=== PATIENT | male | born 1990 | race Caucasian/White ===

== ENCOUNTER 2018-03-09 03:05 | Inpatient (IN) | payer BC ==
[2018-03-09 04:38] LABS: ADD MAN DIFF? NO
[2018-03-09] MEDS: PANTOPRAZOLE 40 MG INJ IV (04:38)
[2018-03-09] MEDS: ONDANSETRON 4 MG INJ IV (04:38)
[2018-03-09] MEDS: morphine 4 MG/ML VIAL IV (04:38)
[2018-03-09] MEDS: SOD CHLORIDE 0.9% 1,000 ML IV ×4 (04:38→20:13)
[2018-03-09 04:49] LABS: BASOPHIL # 0.1 10^3/ul (0.0-0.1); BASOPHILS % 0.5 % (0.0-2.0); EOSINOPHILS % 0.1 % (0.0-7.0); HEMATOCRIT 43.4 % (42.0-52.0); HEMOGLOBIN 14.4 g/dl (14.0-18.0); LYMPHOCYTES # 2.4 10^3/ul (0.8-2.9); LYMPHOCYTES % 15.5 % (15.0-51.0); MEAN CORPUSCULAR HGB CONC 33.2 g/dl (32.0-37.0); MEAN CORPUSCULAR VOLUME 87.3 fl (82.0-101.0); MEAN PLATELET VOLUME 9.9 fl (7.4-10.4); MONOCYTE # 1.4 10^3/ul (0.3-0.9); MONOCYTES % 9.4 % (0.0-11.0); NEUTROPHIL # 11.3 10^3/ul (1.6-7.5); NEUTROPHILS % 73.6 % (39.0-77.0); PLATELET COUNT 309 10^3/UL (140-415); RED BLOOD COUNT 4.97 10^6/ul (4.70-6.10); RED CELL DISTRIBUTION WIDTH 13.2 % (11.5-14.5)
[2018-03-09 04:49] LABS: WHITE BLOOD COUNT 15.3 10^3/ul (4.8-10.8)
[2018-03-09 04:51] LABS: ADD UMIC YES; UR ASCORBIC ACID NEGATIVE (NEGATIVE); UR BACTERIA FEW /HPF (NONE SEEN); UR BILIRUBIN (Dip) NEGATIVE (NEGATIVE); UR BLOOD (Dip) 2+ mg/dL (NEGATIVE); UR CLARITY SLIGHTLY CLOUDY (CLEAR); UR COLOR YELLOW (YELLOW); UR GLUCOSE (Dip) NEGATIVE (NEGATIVE); UR KETONES (Dip) NEGATIVE (NEGATIVE); UR LEUKOCYTE ESTERASE (Dip) 1+ Leu/ul (NEGATIVE); UR MUCUS FEW /HPF (NONE SEEN); UR NITRITE (Dip) NEGATIVE (NEGATIVE); UR RBC 32 /HPF (0-5); UR SPECIFIC GRAVITY (Dip) 1.021 (1.003-1.030); UR SQUAMOUS EPITHELIAL CELL FEW /HPF (FEW); UR TOTAL PROTEIN (Dip) NEGATIVE (NEGATIVE); UR UROBILINOGEN (Dip) 1+ mg/dL (NEGATIVE); UR WBC 53 /HPF (0-5)
[2018-03-09 05:01] LABS: ALANINE AMINOTRANSFERASE 66 IU/L (13-69); ALBUMIN 4.9 g/dl (3.3-4.9); ALBUMIN/GLOBULIN RATIO 1.36; ALKALINE PHOSPHATASE 100 IU/L (42-121); ANION GAP 14 (5-13); ASPARTATE AMINO TRANSFERASE 40 IU/L (15-46); BILIRUBIN,INDIRECT 0.8 mg/dl (0-1.1); BILIRUBIN,TOTAL 0.8 mg/dl (0.2-1.3); BLOOD UREA NITROGEN 8 mg/dl (7-20); CALCIUM 9.4 mg/dl (8.4-10.2); CARBON DIOXIDE 28 mmol/L (21-31); CHLORIDE 100 mmol/L (97-110); CREATININE 0.66 mg/dl (0.61-1.24); Estimated GFR > 60 mL/min (>60); GLUCOSE 122 mg/dl (70-220); LIPASE 35 U/L (23-300); SODIUM 142 mmol/L (135-144); TOTAL PROTEIN 8.5 g/dl (6.1-8.1)
[2018-03-09] MEDS: PIPER-TAZO 3.375 GM IV (PMX) 100 ML IVPB ×4 (06:50→23:48)
[2018-03-09] MEDS ORDERED: ONDANSETRON 4 MG INJ IV (07:30)
[2018-03-09] MEDS ORDERED: BISACODYL (EC) 5 MG TAB PO (07:30)
[2018-03-09] MEDS ORDERED: NACL 0.9% 3 ML SYG IV (07:30)
[2018-03-09] MEDS ORDERED: DOCUSATE SODIUM 100 MG CAP PO (07:30)
[2018-03-09] MEDS: morphine 2 MG INJ IV ×4 (09:08→22:27)
[2018-03-09] MEDS: ACETAMINOPHEN 325 MG TAB PO (15:00)
[2018-03-10] MEDS: ACETAMINOPHEN 325 MG TAB PO ×2 (01:27→10:45)
[2018-03-10] MEDS: morphine 2 MG INJ IV ×2 (04:23→08:50)
[2018-03-10 05:26] LABS: ADD MAN DIFF? NO
[2018-03-10 05:34] LABS: WHITE BLOOD COUNT 14.5 10^3/ul (4.8-10.8)
[2018-03-10 05:34] LABS: BASOPHIL # 0.1 10^3/ul (0.0-0.1); BASOPHILS % 0.4 % (0.0-2.0); EOSINOPHILS % 0.1 % (0.0-7.0); HEMATOCRIT 39.4 % (42.0-52.0); HEMOGLOBIN 12.8 g/dl (14.0-18.0); LYMPHOCYTES # 2.4 10^3/ul (0.8-2.9); LYMPHOCYTES % 16.3 % (15.0-51.0); MEAN CORPUSCULAR HEMOGLOBIN 28.8 pg (29.0-33.0); MEAN CORPUSCULAR HGB CONC 32.5 g/dl (32.0-37.0); MEAN CORPUSCULAR VOLUME 88.5 fl (82.0-101.0); MEAN PLATELET VOLUME 9.9 fl (7.4-10.4); MONOCYTE # 1.4 10^3/ul (0.3-0.9); MONOCYTES % 9.4 % (0.0-11.0); NEUTROPHIL # 10.6 10^3/ul (1.6-7.5); PLATELET COUNT 274 10^3/UL (140-415); RED BLOOD COUNT 4.45 10^6/ul (4.70-6.10); RED CELL DISTRIBUTION WIDTH 13.2 % (11.5-14.5)
[2018-03-10] MEDS: PIPER-TAZO 3.375 GM IV (PMX) 100 ML IVPB ×3 (05:55→18:00)
[2018-03-10 06:09] LABS: ALANINE AMINOTRANSFERASE 46 IU/L (13-69); ALBUMIN 4.1 g/dl (3.3-4.9); ALBUMIN/GLOBULIN RATIO 1.36; ALKALINE PHOSPHATASE 83 IU/L (42-121); ANION GAP 12 (5-13); ASPARTATE AMINO TRANSFERASE 27 IU/L (15-46); BILIRUBIN,INDIRECT 1.6 mg/dl (0-1.1); BILIRUBIN,TOTAL 1.6 mg/dl (0.2-1.3); BLOOD UREA NITROGEN 8 mg/dl (7-20); CALCIUM 8.5 mg/dl (8.4-10.2); CARBON DIOXIDE 25 mmol/L (21-31); CHLORIDE 104 mmol/L (97-110); CHOLESTEROL 183 mg/dl (100-200); CREATININE 0.67 mg/dl (0.61-1.24); Estimated GFR > 60 mL/min (>60); GLUCOSE 97 mg/dl (70-220); HDL CHOLESTEROL 26 mg/dl (30-63); LDL CHOLESTEROL,CALCULATED 129 mg/dl; MAGNESIUM 1.8 mg/dl (1.7-2.5); POTASSIUM 4.2 mmol/L (3.5-5.1); SODIUM 141 mmol/L (135-144); TOTAL PROTEIN 7.1 g/dl (6.1-8.1); TRIGLYCERIDES 138 mg/dl (0-149)
[2018-03-10] MEDS ORDERED: BUPIVACAINE 0.5% (SDV) 30 ML INJ (07:00)
[2018-03-10 07:15] LABS: HEMOGLOBIN A1C 5.2 % (0-5.9)
[2018-03-10] MEDS: SOD CHLORIDE 0.9% 1,000 ML IV ×2 (07:25→13:56)
[2018-03-10] MEDS: SOD CHLORIDE 0.9% IV (10:57)
[2018-03-10] MEDS ORDERED: SOD CHLORIDE 0.9% 500 ML IV (11:00)
[2018-03-10 11:56] LABS: LACTIC ACID 1.2 mmol/L (0.5-2.0)
[2018-03-10] MEDS ORDERED: ONDANSETRON 4 MG INJ IV (17:30)
[2018-03-10] MEDS ORDERED: DIPHENHYDRAMINE 50 MG INJ IV (17:30)
[2018-03-10] MEDS ORDERED: HYDROmorphONE 1 MG/5 ML IV SYRINGE IV ×3 (17:30)
[2018-03-10] MEDS ORDERED: MEPERIDINE 25 MG INJ IV (17:30)
[2018-03-10] MEDS ORDERED: ROCURONIUM 50 MG INJ ×2 (17:36→18:17)
[2018-03-10] MEDS ORDERED: FENTAnyl 50 MCG/ML VIAL (17:36)
[2018-03-10] MEDS ORDERED: PROPOFOL 20 ML (17:36)
[2018-03-10] MEDS ORDERED: MIDAZOLAM 1 MG/ML 2 ML INJ (17:36)
[2018-03-10] MEDS ORDERED: ONDANSETRON 4 MG INJ (17:37)
[2018-03-10] MEDS ORDERED: METOCLOPRAMIDE 10 MG INJ (17:37)
[2018-03-10] MEDS ORDERED: ROPIVACAINE 0.5 % 30 ML VIAL (17:37)
[2018-03-10] MEDS: PIPERACIL/TAZO 3.375GM/100ML BAG IVPB (17:52)
[2018-03-10] MEDS: BUPIVACAINE 0.25%/EPI (MDV) 50 ML VIAL INJ (18:06)
[2018-03-10] MEDS ORDERED: NEOSTIGMINE 3 MG/3 ML SYRINGE (18:31)
[2018-03-10] MEDS ORDERED: HYDROmorphONE 0.5 MG/0.5 ML SYG IV (19:30)
[2018-03-10] MEDS: D5W-0.45 NACL + KCL 20 MEQ 1,000 ML IV (22:07)
[2018-03-11] MEDS: PIPER-TAZO 3.375 GM IV (PMX) 100 ML IVPB ×5 (01:06→23:53)
[2018-03-11] MEDS: ACETAMINOPHEN 325 MG TAB PO ×2 (03:29→15:45)
[2018-03-11] MEDS: D5W-0.45 NACL + KCL 20 MEQ 1,000 ML IV (05:06)
[2018-03-11 05:09] LABS: ADD MAN DIFF? NO
[2018-03-11 05:13] LABS: WHITE BLOOD COUNT 14.8 10^3/ul (4.8-10.8)
[2018-03-11 05:13] LABS: BASOPHILS % 0.2 % (0.0-2.0); HEMOGLOBIN 11.7 g/dl (14.0-18.0); LYMPHOCYTES % 13.2 % (15.0-51.0); MEAN CORPUSCULAR HEMOGLOBIN 29.1 pg (29.0-33.0); MEAN CORPUSCULAR HGB CONC 33.4 g/dl (32.0-37.0); MEAN CORPUSCULAR VOLUME 87.1 fl (82.0-101.0); MEAN PLATELET VOLUME 9.7 fl (7.4-10.4); MONOCYTE # 1.1 10^3/ul (0.3-0.9); MONOCYTES % 7.4 % (0.0-11.0); NEUTROPHIL # 11.6 10^3/ul (1.6-7.5); NEUTROPHILS % 78.4 % (39.0-77.0); PLATELET COUNT 273 10^3/UL (140-415); RED BLOOD COUNT 4.02 10^6/ul (4.70-6.10); RED CELL DISTRIBUTION WIDTH 12.8 % (11.5-14.5)
[2018-03-11 05:27] LABS: LACTIC ACID 0.9 mmol/L (0.5-2.0)
[2018-03-11 06:35] LABS: ALBUMIN/GLOBULIN RATIO 1.23; ANION GAP 11 (5-13); BILIRUBIN,TOTAL 1.2 mg/dl (0.2-1.3); Estimated GFR > 60 mL/min (>60)
[2018-03-11 06:45] LABS: ALANINE AMINOTRANSFERASE 38 IU/L (13-69); ALBUMIN 3.7 g/dl (3.3-4.9); ALKALINE PHOSPHATASE 90 IU/L (42-121); ASPARTATE AMINO TRANSFERASE 36 IU/L (15-46); BILIRUBIN,INDIRECT 1.2 mg/dl (0-1.1); BLOOD UREA NITROGEN 4 mg/dl (7-20); CALCIUM 8.5 mg/dl (8.4-10.2); CARBON DIOXIDE 23 mmol/L (21-31); CHLORIDE 105 mmol/L (97-110); CREATININE 0.64 mg/dl (0.61-1.24); GLUCOSE 120 mg/dl (70-220); POTASSIUM 3.4 mmol/L (3.5-5.1); SODIUM 139 mmol/L (135-144); TOTAL PROTEIN 6.7 g/dl (6.1-8.1)
[2018-03-11] MEDS: POTASSIUM CHLORIDE (SR) 20 MEQ TAB PO (09:54)
[2018-03-11 10:36] LABS: ADD MAN DIFF? NO
[2018-03-11 10:42] LABS: WHITE BLOOD COUNT 16.6 10^3/ul (4.8-10.8)
[2018-03-11 10:42] LABS: BASOPHILS % 0.2 % (0.0-2.0); EOSINOPHILS % 0.1 % (0.0-7.0); HEMATOCRIT 38.1 % (42.0-52.0); HEMOGLOBIN 12.4 g/dl (14.0-18.0); LYMPHOCYTES # 1.9 10^3/ul (0.8-2.9); LYMPHOCYTES % 11.5 % (15.0-51.0); MEAN CORPUSCULAR HEMOGLOBIN 28.5 pg (29.0-33.0); MEAN CORPUSCULAR HGB CONC 32.5 g/dl (32.0-37.0); MEAN CORPUSCULAR VOLUME 87.6 fl (82.0-101.0); MEAN PLATELET VOLUME 9.6 fl (7.4-10.4); MONOCYTE # 1.1 10^3/ul (0.3-0.9); MONOCYTES % 6.6 % (0.0-11.0); NEUTROPHIL # 13.4 10^3/ul (1.6-7.5); NEUTROPHILS % 80.6 % (39.0-77.0); PLATELET COUNT 306 10^3/UL (140-415); RED BLOOD COUNT 4.35 10^6/ul (4.70-6.10); RED CELL DISTRIBUTION WIDTH 13.2 % (11.5-14.5)
[2018-03-11 10:57] LABS: ANION GAP 11 (5-13); BLOOD UREA NITROGEN 3 mg/dl (7-20); CALCIUM 8.9 mg/dl (8.4-10.2); CARBON DIOXIDE 26 mmol/L (21-31); CHLORIDE 102 mmol/L (97-110); CREATININE 0.67 mg/dl (0.61-1.24); Estimated GFR > 60 mL/min (>60); GLUCOSE 132 mg/dl (70-220); POTASSIUM 3.5 mmol/L (3.5-5.1); SODIUM 139 mmol/L (135-144)
[2018-03-11] MEDS: SACCHAROMYCES BOULARDII 250 MG CAP PO (21:39)
[2018-03-12] MEDS: ACETAMINOPHEN 325 MG TAB PO ×3 (01:09→21:25)
[2018-03-12] MEDS: PIPER-TAZO 3.375 GM IV (PMX) 100 ML IVPB ×4 (06:22→23:27)
[2018-03-12] MEDS: SACCHAROMYCES BOULARDII 250 MG CAP PO ×2 (09:55→21:24)
[2018-03-12] MEDS: metroNIDAZOLE 500 MG TAB PO ×3 (10:25→21:24)
[2018-03-12 11:22] LABS: ADD MAN DIFF? NO
[2018-03-12 11:26] LABS: WHITE BLOOD COUNT 14.6 10^3/ul (4.8-10.8)
[2018-03-12 11:26] LABS: BASOPHIL # 0.1 10^3/ul (0.0-0.1); BASOPHILS % 0.5 % (0.0-2.0); EOSINOPHILS # 0.1 10^3/ul (0.0-0.5); EOSINOPHILS % 0.9 % (0.0-7.0); HEMATOCRIT 38.8 % (42.0-52.0); HEMOGLOBIN 12.7 g/dl (14.0-18.0); LYMPHOCYTES # 1.7 10^3/ul (0.8-2.9); LYMPHOCYTES % 11.3 % (15.0-51.0); MEAN CORPUSCULAR HEMOGLOBIN 28.6 pg (29.0-33.0); MEAN CORPUSCULAR HGB CONC 32.7 g/dl (32.0-37.0); MEAN CORPUSCULAR VOLUME 87.4 fl (82.0-101.0); MONOCYTE # 0.9 10^3/ul (0.3-0.9); MONOCYTES % 6.4 % (0.0-11.0); NEUTROPHIL # 11.6 10^3/ul (1.6-7.5); NEUTROPHILS % 79.3 % (39.0-77.0); PLATELET COUNT 352 10^3/UL (140-415); RED BLOOD COUNT 4.44 10^6/ul (4.70-6.10); RED CELL DISTRIBUTION WIDTH 13.1 % (11.5-14.5)
[2018-03-12 11:44] LABS: ANION GAP 13 (5-13); BLOOD UREA NITROGEN 4 mg/dl (7-20); CALCIUM 9.5 mg/dl (8.4-10.2); CARBON DIOXIDE 26 mmol/L (21-31); CHLORIDE 101 mmol/L (97-110); CREATININE 0.55 mg/dl (0.61-1.24); Estimated GFR > 60 mL/min (>60); GLUCOSE 125 mg/dl (70-220); POTASSIUM 3.8 mmol/L (3.5-5.1); SODIUM 140 mmol/L (135-144)
[2018-03-12] MEDS: ALPRAZOLAM 0.5 MG TAB PO (16:11)
[2018-03-13 05:06] LABS: ADD MAN DIFF? NO
[2018-03-13 05:07] LABS: BASOPHIL # 0.1 10^3/ul (0.0-0.1); BASOPHILS % 0.4 % (0.0-2.0); EOSINOPHILS # 0.4 10^3/ul (0.0-0.5); EOSINOPHILS % 2.6 % (0.0-7.0); HEMATOCRIT 36.1 % (42.0-52.0); HEMOGLOBIN 11.8 g/dl (14.0-18.0); LYMPHOCYTES # 1.5 10^3/ul (0.8-2.9); LYMPHOCYTES % 9.8 % (15.0-51.0); MEAN CORPUSCULAR HEMOGLOBIN 28.4 pg (29.0-33.0); MEAN CORPUSCULAR HGB CONC 32.7 g/dl (32.0-37.0); MEAN PLATELET VOLUME 9.8 fl (7.4-10.4); MONOCYTES % 6.6 % (0.0-11.0); NEUTROPHIL # 11.6 10^3/ul (1.6-7.5); NEUTROPHILS % 78.5 % (39.0-77.0); PLATELET COUNT 362 10^3/UL (140-415); RED BLOOD COUNT 4.15 10^6/ul (4.70-6.10); RED CELL DISTRIBUTION WIDTH 13.2 % (11.5-14.5)
[2018-03-13 05:07] LABS: WHITE BLOOD COUNT 14.8 10^3/ul (4.8-10.8)
[2018-03-13 05:34] LABS: ANION GAP 11 (5-13); BLOOD UREA NITROGEN 2 mg/dl (7-20); CALCIUM 9.2 mg/dl (8.4-10.2); CARBON DIOXIDE 27 mmol/L (21-31); CHLORIDE 103 mmol/L (97-110); CREATININE 0.58 mg/dl (0.61-1.24); Estimated GFR > 60 mL/min (>60); GLUCOSE 114 mg/dl (70-220); POTASSIUM 3.7 mmol/L (3.5-5.1); SODIUM 141 mmol/L (135-144)
[2018-03-13] MEDS: PIPER-TAZO 3.375 GM IV (PMX) 100 ML IVPB ×4 (06:07→23:54)
[2018-03-13] MEDS: metroNIDAZOLE 500 MG TAB PO ×2 (06:07→14:34)
[2018-03-13] MEDS: SACCHAROMYCES BOULARDII 250 MG CAP PO ×2 (08:43→20:34)
[2018-03-13] MEDS: GUAIFENESIN/DM 5ML CUP PO (12:51)
[2018-03-13] MEDS ORDERED: morphine LIQ (10 MG/5 ML) CUP PO (15:12)
[2018-03-13] MEDS: ACETAMINOPHEN 325 MG TAB PO (17:00)
[2018-03-14 05:54] LABS: ADD MAN DIFF? NO
[2018-03-14 05:57] LABS: BASOPHIL # 0.1 10^3/ul (0.0-0.1); BASOPHILS % 0.4 % (0.0-2.0); EOSINOPHILS # 0.4 10^3/ul (0.0-0.5); EOSINOPHILS % 2.8 % (0.0-7.0); HEMATOCRIT 34.5 % (42.0-52.0); HEMOGLOBIN 11.3 g/dl (14.0-18.0); LYMPHOCYTES # 1.7 10^3/ul (0.8-2.9); LYMPHOCYTES % 12.1 % (15.0-51.0); MEAN CORPUSCULAR HEMOGLOBIN 28.6 pg (29.0-33.0); MEAN CORPUSCULAR HGB CONC 32.8 g/dl (32.0-37.0); MEAN CORPUSCULAR VOLUME 87.3 fl (82.0-101.0); MEAN PLATELET VOLUME 9.9 fl (7.4-10.4); MONOCYTES % 7.4 % (0.0-11.0); NEUTROPHIL # 10.3 10^3/ul (1.6-7.5); NEUTROPHILS % 75.2 % (39.0-77.0); PLATELET COUNT 394 10^3/UL (140-415); RED BLOOD COUNT 3.95 10^6/ul (4.70-6.10); RED CELL DISTRIBUTION WIDTH 13.4 % (11.5-14.5)
[2018-03-14 05:57] LABS: WHITE BLOOD COUNT 13.7 10^3/ul (4.8-10.8)
[2018-03-14] MEDS: PIPER-TAZO 3.375 GM IV (PMX) 100 ML IVPB ×4 (06:01→23:36)
[2018-03-14 07:05] LABS: ANION GAP 12 (5-13); BLOOD UREA NITROGEN 3 mg/dl (7-20); CARBON DIOXIDE 26 mmol/L (21-31); CHLORIDE 103 mmol/L (97-110); CREATININE 0.57 mg/dl (0.61-1.24); Estimated GFR > 60 mL/min (>60); GLUCOSE 94 mg/dl (70-220); POTASSIUM 3.5 mmol/L (3.5-5.1); SODIUM 141 mmol/L (135-144)
[2018-03-14] MEDS: SACCHAROMYCES BOULARDII 250 MG CAP PO ×2 (08:59→20:35)
[2018-03-14] MEDS: IBUPROFEN 600 MG TAB PO (08:59)
[2018-03-14] MEDS: ALPRAZOLAM 0.5 MG TAB PO (08:59)
[2018-03-15] MEDS: PIPER-TAZO 3.375 GM IV (PMX) 100 ML IVPB ×2 (05:31→12:00)
[2018-03-15 07:20] LABS: ADD MAN DIFF? NO
[2018-03-15 07:28] LABS: WHITE BLOOD COUNT 15.7 10^3/ul (4.8-10.8)
[2018-03-15 07:28] LABS: BASOPHIL # 0.1 10^3/ul (0.0-0.1); BASOPHILS % 0.5 % (0.0-2.0); EOSINOPHILS # 0.6 10^3/ul (0.0-0.5); EOSINOPHILS % 3.6 % (0.0-7.0); HEMATOCRIT 35.8 % (42.0-52.0); HEMOGLOBIN 11.5 g/dl (14.0-18.0); LYMPHOCYTES # 1.7 10^3/ul (0.8-2.9); MEAN CORPUSCULAR HEMOGLOBIN 28.7 pg (29.0-33.0); MEAN CORPUSCULAR HGB CONC 32.1 g/dl (32.0-37.0); MEAN CORPUSCULAR VOLUME 89.3 fl (82.0-101.0); MEAN PLATELET VOLUME 9.8 fl (7.4-10.4); MONOCYTE # 1.1 10^3/ul (0.3-0.9); MONOCYTES % 6.9 % (0.0-11.0); NEUTROPHIL # 11.8 10^3/ul (1.6-7.5); NEUTROPHILS % 74.9 % (39.0-77.0); PLATELET COUNT 432 10^3/UL (140-415); RED BLOOD COUNT 4.01 10^6/ul (4.70-6.10); RED CELL DISTRIBUTION WIDTH 13.5 % (11.5-14.5)
[2018-03-15 07:41] LABS: ANION GAP 11 (5-13); BLOOD UREA NITROGEN 7 mg/dl (7-20); CALCIUM 8.7 mg/dl (8.4-10.2); CARBON DIOXIDE 26 mmol/L (21-31); CHLORIDE 104 mmol/L (97-110); CREATININE 0.64 mg/dl (0.61-1.24); Estimated GFR > 60 mL/min (>60); GLUCOSE 102 mg/dl (70-220); POTASSIUM 3.9 mmol/L (3.5-5.1); SODIUM 141 mmol/L (135-144)
[2018-03-15] MEDS: GUAIFENESIN/DM 5ML CUP PO (08:01)
[2018-03-15] MEDS: SACCHAROMYCES BOULARDII 250 MG CAP PO (08:52)
== END 2018-03-15 12:39 | disposition home or self-care (01) | DRG 853 ==
LOC: 6WM 03-10 11:31 → PP2 03-15 01:01 → FTE 03:05 → PP2 07:21
PROC: 0DNW4ZZ Release Peritoneum, Percutaneous Endoscopic Approach (ICD-10-PCS; principal; 2018-03-10 17:29)
DX: A41.9 Sepsis, unspecified organism (principal); K35.32 Acute appendicitis with perforation, localized peritonitis, and gangrene, without abscess; N39.0 Urinary tract infection, site not specified; K52.1 Toxic gastroenteritis and colitis; B95.1 Streptococcus, group B, as the cause of diseases classified elsewhere; T36.95XA Adverse effect of unspecified systemic antibiotic, initial encounter; F41.9 Anxiety disorder, unspecified; Z87.891 Personal history of nicotine dependence
CPT/HCPCS: 36415; 74176; 80048; 80053; 80061; 81001; 83036; 83605; 83690; 83735; 84443; 85025; 87040; 87075; 87081; 87086; 90686; 96374; 96375; 99285-25

== ENCOUNTER 2018-06-05 05:50 | Inpatient (IN) | payer BC ==
[2018-06-05] MEDS ORDERED: ROCURONIUM 50 MG INJ (07:00)
[2018-06-05] MEDS: BUPIVACAINE 0.5%/EPI (SDV) 30 ML INJ (07:02)
[2018-06-05] MEDS: LIDOCAINE 2% (MDV) 20 ML INJ (07:02)
[2018-06-05] MEDS: ACETAMINOPHEN 500 MG TAB PO (07:14)
[2018-06-05] MEDS ORDERED: LIDOCAINE 2% (SDV) 5 ML INJ (07:17)
[2018-06-05] MEDS ORDERED: PROPOFOL 40 ML (07:17)
[2018-06-05] MEDS ORDERED: FENTAnyl 50 MCG/ML VIAL ×2 (07:18→08:32)
[2018-06-05] MEDS ORDERED: MIDAZOLAM 1 MG/ML 2 ML INJ (07:18)
[2018-06-05] MEDS ORDERED: FAMOTIDINE 20 MG INJ (07:18)
[2018-06-05] MEDS ORDERED: CEFAZOLIN 1 GM INJ (07:20)
[2018-06-05] MEDS ORDERED: ONDANSETRON 4 MG INJ (07:20)
[2018-06-05] MEDS ORDERED: DEXAMETHASONE 4 MG/ML 5 ML INJ (07:20)
[2018-06-05] MEDS ORDERED: ALBUTEROL 0.083% (NEB) 2.5 MG/3 ML AMP HHN (07:30)
[2018-06-05] MEDS ORDERED: LABETALOL HCL 20MG INJ IV (07:30)
[2018-06-05] MEDS: LACTATED RINGER'S 1,000 ML IV (07:30)
[2018-06-05] MEDS ORDERED: MEPERIDINE 25 MG INJ IV (07:30)
[2018-06-05] MEDS ORDERED: FENTAnyl 50 MCG/ML VIAL IV (07:30)
[2018-06-05] MEDS ORDERED: DIPHENHYDRAMINE 50 MG INJ IV (07:30)
[2018-06-05] MEDS ORDERED: morphine (1 MG/ML) 10ML SYRINGE IV ×2 (07:30)
[2018-06-05] MEDS ORDERED: OXYCODONE/ACETAMINOPHEN (5/325) TAB PO ×2 (07:30)
[2018-06-05] MEDS ORDERED: PIPER-TAZO 3.375 GM IV (PMX) 100 ML (07:41)
[2018-06-05] MEDS ORDERED: SUGAMMADEX SODIUM 200 MG/2 ML VIAL IV (08:25)
[2018-06-05] MEDS: ONDANSETRON 4 MG INJ IV ×2 (09:52→10:59)
[2018-06-05] MEDS: HYDROmorphONE 1 MG/5 ML IV SYRINGE IV ×3 (10:02→10:14)
[2018-06-05] MEDS: FENTAnyl 50 MCG/ML VIAL IV ×2 (10:20→10:36)
[2018-06-05 10:49] LABS: HEMATOCRIT 41.6 % (42.0-52.0); HEMOGLOBIN 13.7 g/dl (14.0-18.0)
[2018-06-05] MEDS: SOD CHLORIDE 0.9% 1,000 ML IV (12:34)
[2018-06-05] MEDS: HYDROmorphONE 0.5 MG/0.5 ML SYG IV (20:13)
[2018-06-06] MEDS: HYDROmorphONE 0.5 MG/0.5 ML SYG IV ×5 (03:53→23:30)
[2018-06-06 05:59] LABS: ADD MAN DIFF? NO
[2018-06-06 06:02] LABS: BASOPHILS % 0.2 % (0.0-2.0); HEMATOCRIT 39.3 % (42.0-52.0); HEMOGLOBIN 12.9 g/dl (14.0-18.0); LYMPHOCYTES % 12.2 % (15.0-51.0); MEAN CORPUSCULAR HEMOGLOBIN 28.4 pg (29.0-33.0); MEAN CORPUSCULAR HGB CONC 32.8 g/dl (32.0-37.0); MEAN CORPUSCULAR VOLUME 86.6 fl (82.0-101.0); MEAN PLATELET VOLUME 9.9 fl (7.4-10.4); MONOCYTE # 1.1 10^3/ul (0.3-0.9); MONOCYTES % 6.7 % (0.0-11.0); NEUTROPHIL # 13.2 10^3/ul (1.6-7.5); NEUTROPHILS % 80.2 % (39.0-77.0); PLATELET COUNT 299 10^3/UL (140-415); RED BLOOD COUNT 4.54 10^6/ul (4.70-6.10); RED CELL DISTRIBUTION WIDTH 13.2 % (11.5-14.5)
[2018-06-06 06:02] LABS: WHITE BLOOD COUNT 16.5 10^3/ul (4.8-10.8)
[2018-06-06] MEDS: LACTATED RINGER'S 1,000 ML IV (08:29)
[2018-06-06] MEDS: ONDANSETRON 4 MG INJ IV ×2 (12:40→22:24)
[2018-06-06] MEDS: METOCLOPRAMIDE 10 MG INJ IV (17:48)
[2018-06-06] MEDS: SOD CHLORIDE 0.9% 1,000 ML IV (23:54)
[2018-06-06] MEDS: ACETAMINOPHEN 325 MG TAB PO (23:55)
[2018-06-07] MEDS ORDERED: ACETAMINOPHEN 650 MG SUPP PR
[2018-06-07] MEDS: D5-NS + KCL 20 MEQ 1,000 ML IV ×3 (01:05→17:31)
[2018-06-07] MEDS: METOCLOPRAMIDE 10 MG INJ IV ×3 (03:21→21:00)
[2018-06-07] MEDS: HYDROmorphONE 0.5 MG/0.5 ML SYG IV ×2 (03:30→08:45)
[2018-06-07 05:49] LABS: ADD MAN DIFF? NO
[2018-06-07 05:50] LABS: BASOPHILS % 0.2 % (0.0-2.0); HEMATOCRIT 40.4 % (42.0-52.0); HEMOGLOBIN 13.2 g/dl (14.0-18.0); LYMPHOCYTES # 1.5 10^3/ul (0.8-2.9); LYMPHOCYTES % 7.6 % (15.0-51.0); MEAN CORPUSCULAR HEMOGLOBIN 28.7 pg (29.0-33.0); MEAN CORPUSCULAR HGB CONC 32.7 g/dl (32.0-37.0); MEAN CORPUSCULAR VOLUME 87.8 fl (82.0-101.0); NEUTROPHIL # 16.7 10^3/ul (1.6-7.5); NEUTROPHILS % 86.3 % (39.0-77.0); PLATELET COUNT 301 10^3/UL (140-415); RED CELL DISTRIBUTION WIDTH 13.3 % (11.5-14.5)
[2018-06-07 05:50] LABS: WHITE BLOOD COUNT 19.4 10^3/ul (4.8-10.8)
[2018-06-07] MEDS: LACTATED RINGER'S 1,000 ML IV (07:30)
[2018-06-07 08:21] LABS: ANION GAP 13 (5-13); BLOOD UREA NITROGEN 9 mg/dl (7-20); CALCIUM 8.7 mg/dl (8.4-10.2); CARBON DIOXIDE 27 mmol/L (21-31); CHLORIDE 99 mmol/L (97-110); CREATININE 0.61 mg/dl (0.61-1.24); Estimated GFR > 60 mL/min (>60); GLUCOSE 188 mg/dl (70-220); POTASSIUM 3.7 mmol/L (3.5-5.1); SODIUM 139 mmol/L (135-144)
[2018-06-07] MEDS: ONDANSETRON 4 MG INJ IV ×2 (08:45→22:09)
[2018-06-07] MEDS: IOHEXOL 14.3 MG(I)/ML (ADULT) BTL PO (08:55)
[2018-06-07] MEDS: SOD CHLORIDE 0.9% 100 ML (12:21)
[2018-06-07] MEDS: IOHEXOL 300MG/ML 150 ML BTL (12:21)
[2018-06-07] MEDS: HYDROCODONE/APAP (5/325) TAB PO ×2 (12:34→20:03)
[2018-06-07] MEDS: BISACODYL 10 MG SUPP PR (15:00)
[2018-06-07] MEDS ORDERED: SOD CHLORIDE 0.9% 500 ML IV (20:00)
[2018-06-07] MEDS: PIPER-TAZO 3.375 GM IV (PMX) 100 ML IVPB (21:02)
[2018-06-08] MEDS: PIPER-TAZO 3.375 GM IV (PMX) 100 ML IVPB ×5 (00:36→23:36)
[2018-06-08] MEDS: D5-NS + KCL 20 MEQ 1,000 ML IV ×4 (01:00→21:42)
[2018-06-08 07:14] LABS: ADD MAN DIFF? NO
[2018-06-08 07:17] LABS: BASOPHIL # 0.1 10^3/ul (0.0-0.1); BASOPHILS % 0.5 % (0.0-2.0); EOSINOPHILS # 0.2 10^3/ul (0.0-0.5); HEMATOCRIT 39.2 % (42.0-52.0); HEMOGLOBIN 12.7 g/dl (14.0-18.0); LYMPHOCYTES # 1.8 10^3/ul (0.8-2.9); LYMPHOCYTES % 11.9 % (15.0-51.0); MEAN CORPUSCULAR HEMOGLOBIN 28.7 pg (29.0-33.0); MEAN CORPUSCULAR HGB CONC 32.4 g/dl (32.0-37.0); MEAN CORPUSCULAR VOLUME 88.7 fl (82.0-101.0); MEAN PLATELET VOLUME 9.9 fl (7.4-10.4); MONOCYTE # 1.1 10^3/ul (0.3-0.9); MONOCYTES % 7.3 % (0.0-11.0); NEUTROPHIL # 11.5 10^3/ul (1.6-7.5); NEUTROPHILS % 78.1 % (39.0-77.0); PLATELET COUNT 303 10^3/UL (140-415); RED BLOOD COUNT 4.42 10^6/ul (4.70-6.10); RED CELL DISTRIBUTION WIDTH 13.2 % (11.5-14.5)
[2018-06-08 07:17] LABS: WHITE BLOOD COUNT 14.7 10^3/ul (4.8-10.8)
[2018-06-08] MEDS: ONDANSETRON 4 MG INJ IV (07:26)
[2018-06-08] MEDS: LACTATED RINGER'S 1,000 ML IV (07:30)
[2018-06-08] MEDS: HYDROCODONE/APAP (5/325) TAB PO (10:22)
[2018-06-08] MEDS: CEPASTAT LOZENGE MT (21:42)
[2018-06-09] MEDS: PIPER-TAZO 3.375 GM IV (PMX) 100 ML IVPB ×2 (05:16→12:07)
[2018-06-09] MEDS: CEPASTAT LOZENGE MT ×2 (05:43→12:07)
[2018-06-09] MEDS: HYDROCODONE/APAP (5/325) TAB PO (08:38)
[2018-06-09] MEDS: D5-NS + KCL 20 MEQ 1,000 ML IV (09:00)
== END 2018-06-09 15:36 | disposition home or self-care (01) | DRG 336 ==
LOC: SDS 05:50 → PP2 11:43
PROC: 0DNJ4ZZ Release Appendix, Percutaneous Endoscopic Approach (ICD-10-PCS; principal; 2018-06-05 07:30)
PROC: 0DN84ZZ Release Small Intestine, Percutaneous Endoscopic Approach (ICD-10-PCS; 2018-06-05 07:30)
DX: K36 Other appendicitis (principal); K56.7 Ileus, unspecified; J98.11 Atelectasis; K66.0 Peritoneal adhesions (postprocedural) (postinfection); R11.2 Nausea with vomiting, unspecified; R50.9 Fever, unspecified; D72.829 Elevated white blood cell count, unspecified
CPT/HCPCS: 74177; 80048; 85014; 85018; 85025; 88304; G0378